=== PATIENT | male | born 1960 | race Caucasian/White ===

== ENCOUNTER → 2019-02-10 | Outpatient (CLI) | payer OTHER ==
--- NOTE | 2019-02-10 10:01 | XR ---
EXAM TYPE: LUMBAR SPINE X RAY SERIES COMPARISON: NONE HISTORY: Pain TECHNIQUE: 4 views are submitted. FINDINGS: Alignment is anatomic. The pedicles are intact. The transverse processes are intact. There is no s pondylolysis or spondylolisthesis. Hypertrophic spurring noted anteriorly. There is degenerative dis c disease at all levels. Vascular calcifications noted. IMPRESSION: 1. Multilevel mild degenerative disc disease.
--- NOTE | 2019-02-10 10:03 | XR ---
EXAMINATION TYPE: XR chest 2V DATE OF EXAM: 02/10/2019 COMPARISON: NONE TECHNIQUE: PA and lateral views submitted. HISTORY: Shortness of breath FINDINGS: The lungs are clear and there is no pneumothorax, pleural effusion, or focal pneumonia. Arthropathy of the AC joints. No overt failure. Curvature the spine with multilevel degenerative changes. Mild h yperinflation. IMPRESSION: 1. No acute process. Mild hyperinflation could be associated with mild COPD.
== END | disposition home or self-care (01) ==
LOC: RADXRMAIN 09:11
PROVIDERS: ATTEND Family Medicine
DX: M51.36 Other intervertebral disc degeneration, lumbar region (principal)
CPT/HCPCS: 71046; 72100

== ENCOUNTER 2019-03-14 12:47 | Emergency (ER) | payer OTHER ==
[2019-03-14] MEDS ORDERED: HYDROmorphone 1 MG/ML 1 ML SYRINGE IVP STA (13:55)
[2019-03-14] MEDS ORDERED: RX INFO: IV CONTRAST WAS GIVEN 1 EACH MISC MISCELLANE PRN (13:56)
--- NOTE | 2019-03-14 15:07 | XR ---
EXAMINATION TYPE: XR knee 4V RT DATE OF EXAM: 03/14/2019 COMPARISON: NONE HISTORY: Knee pain TECHNIQUE: 4 views FINDINGS: There is minimal spurring of the medial femoral and tibial condyles. There is minor spurrin g of the patella. I see no fracture nor dislocation. There is a 1 cm cyst in the head of the fibula. IMPRESSION: Early osteoarthritic changes. No fracture seen.
--- NOTE | 2019-03-14 15:07 | XR ---
EXAMINATION TYPE: XR ankle complete RT DATE OF EXAM: 03/14/2019 COMPARISON: NONE HISTORY: Ankle pain TECHNIQUE: 3 views FINDINGS: Ankle mortise is anatomic. I see no fracture nor dislocation. There is minimal soft tissue swelling over the lateral malleolus. IMPRESSION: Mild soft tissue swelling. No fracture seen.
--- NOTE | 2019-03-14 15:08 | XR ---
EXAMINATION TYPE: XR tibia fibula RT DATE OF EXAM: 03/14/2019 COMPARISON: NONE HISTORY: Pain TECHNIQUE: 2 views FINDINGS: There is rounded sharply marginated lucency in the head of the fibula consistent with a sim ple cyst. I see no fracture nor dislocation. IMPRESSION: 1 cm simple cyst in the fibula head. Otherwise negative exam.
--- NOTE | 2019-03-14 15:09 | XR ---
EXAMINATION TYPE: XR foot complete RT DATE OF EXAM: 03/14/2019 COMPARISON: NONE HISTORY: Pain TECHNIQUE: 3 views FINDINGS: Metatarsals are intact. I see no fracture nor dislocation. There are no erosions. IMPRESSION: Negative right foot exam. No fracture seen. No sign of inflammatory arthritis.
[2019-03-14 15:14] VITALS: RESP 16
[2019-03-14 15:18] LABS: Basophils # (A) 0.1 k/uL (0-0.2); Basophils % (A) 1 %; Eosinophils # (A) 0.2 k/uL (0-0.7); Eosinophils % (A) 1 %; HCT 41.7 % (39.0-53.0); HGB 14.8 gm/dL (13.0-17.5); Lymphocytes % (A) 8 %; MCH 32.2 pg (25.0-35.0); MCHC 35.6 g/dL (31.0-37.0); MCV 90.6 fL (80.0-100.0); Mean Platelet Volume 7.4; Monocytes # (A) 0.8 k/uL (0-1.0); Monocytes % (A) 7 %; Neutrophils # (A) 9.9 k/uL (1.3-7.7); Neutrophils % (A) 82 %; Platelet Count 175 k/uL (150-450); RDW 13.4 % (11.5-15.5); WBC 12.1 k/uL (3.8-10.6)
[2019-03-14 15:19] LABS: ALT 106 U/L (21-72); AST 76 U/L (17-59); African American GFR (CKD) >90 (>60 ml/min/1.73 sqM); Albumin 4.7 g/dL (3.5-5.0); Alkaline Phosphatase 85 U/L (38-126); Anion Gap 11 mmol/L; Blood Urea Nitrogen 12 mg/dL (9-20); Calcium 9.1 mg/dL (8.4-10.2); Carbon Dioxide 22 mmol/L (22-30); Chloride 105 mmol/L (98-107); Glucose 96 mg/dL (74-99); INR 0.9 (<1.2); Potassium 4.6 mmol/L (3.5-5.1); Prothrombin Time 10.1 sec (9.0-12.0); Sodium 138 mmol/L (137-145); Total Bilirubin 0.6 mg/dL (0.2-1.3); Total Protein 7.1 g/dL (6.3-8.2)
[2019-03-14 15:32] LABS: Partial Thromboplastin Time 18.1 sec (22.0-30.0)
--- NOTE | 2019-03-14 15:40 | US ---
EXAMINATION TYPE: US venous doppler duplex LE RT DATE OF EXAM: 03/14/2019 3:32 PM COMPARISON: NONE CLINICAL HISTORY: Pain. SIDE PERFORMED: Right TECHNIQUE: The lower extremity deep venous system is examined utilizing real time linear array sonog marce with graded compression, doppler sonography and color-flow sonography. VESSELS IMAGED: External Iliac Vein (EIV) Common Femoral Vein Deep Femoral Vein Greater Saphenous Vein * Femoral Vein Popliteal Vein Small Saphenous Vein * Proximal Calf Veins (* superficial vessels) Right Leg: Negative for DVT IMPRESSION: No evidence of deep venous thrombosis in the right leg.
--- NOTE | 2019-03-14 16:51 | CT ---
EXAMINATION TYPE: CT lower leg RT w con DATE OF EXAM: 03/14/2019 COMPARISON: None HISTORY: Right ankle/lower leg pain. No injury. CT DLP: 243.2 mGycm Automated exposure control for dose reduction was used. CONTRAST: Performed with IV Contrast, patient injected with 100ml mL of Isovue 300. FINDINGS: There is a small knee joint effusion. Knee joint spaces are fairly normal. Ankle mortise is anatomic. I see no fracture nor dislocation. Tibia and fibula appear intact. There is sharply marginated 1 cm cyst in the head of the fibula. There is no expansion. There is no evidence of soft tissue mass. I se e no focal bony destructive process. IMPRESSION: THERE IS A BENIGN-APPEARING CYST IN THE HEAD OF THE FIBULA. OTHERWISE NEGATIVE EXAM. NO FRACTURE. NO EVIDENCE OF SOFT TISSUE MASS.
[2019-03-14] MEDS ORDERED: SODIUM CHLORIDE 0.9% 500 ML 500 ML IV STA (16:56)
[2019-03-14] MEDS ORDERED: ACET/COD 300 MG/30 MG STARTER PACK 6 TAB BTL PO STA (16:59)
--- NOTE | 2019-03-14 16:59 | ED ---
General Adult HPI - General Chief complaint: Extremity Injury, Lower Stated complaint: Ankle pain Time Seen by Provider: 03/14/19 13:33 Source: patient, RN notes reviewed, old records reviewed Mode of arrival: ambulatory Limitations: no limitations - History of Present Illness Initial comments: 58-year-old male patient no pertinent past history presents ED with chief complaint of right lower extremity pain. Patient ports that he woke up and had pain in his right heel, posterior calf pain this morning. Patient denies any recent falls or trauma. Patient denies any systemic complaints, denies any fevers chills, nausea vomiting diarrhea. Patient denies any recent prolonged travel denies any history of blood clot disorder, use of exogenous estrogen or any VTE history. Patient denies all other complaints at this time. Systemic: Pt denies fatigue, fever/chills, rash. Pt denies weakness, night sweats, weight loss. Neuro: Pt denies headache, visual disturbances, syncope or pre-syncope. HEENT: Pt denies ocular discharge or irritation, otalgia, rhinorrhea, pharyngitis or notable lymphadenopathy. Cardiopulmonary: Pt denies chest pain, SOB, heart palpitations, dyspnea on exertion. Abdominal/GI: Pt denies abdominal pain, n/v/d. : Pt denies dysuria, burning w/ urination, frequency/urgency. Denies new onset urinary or bowel incontinence. MSK: Pt denies myalgia, loss of strength or function in extremities. Neuro: Pt denies new onset weakness, paresthesias. - Related Data Home Medications Medication Instructions Recorded Confirmed Calcium Carbonate [Calcium] 600 mg PO DAILY 03/14/19 03/14/19 Garlic 1 tab PO DAILY 03/14/19 03/14/19 Glucosamine/Chondr Mann A Sod [Osteo 1 tab PO DAILY 03/14/19 03/14/19 Bi-Flex Caplet] Multivitamins, Thera [Multivitamin 1 tab PO DAILY 03/14/19 03/14/19 (formulary)] amLODIPine [Norvasc] 5 mg PO DAILY 03/14/19 03/14/19 Allergies Allergy/AdvReac Type Severity Reaction Status Date / Time No Known Allergies Allergy Verified 03/14/19 16:54 Review of Systems ROS Statement: Those systems with pertinent positive or pertinent negative responses have been documented in the HPI. ROS Other: All systems not noted in ROS Statement are negative. Past Medical History Past Medical History: Hypertension History of Any Multi-Drug Resistant Organisms: None Reported Additional Past Surgical History / Comment(s): lipoma removal Past Psychological History: No Psychological Hx Reported Smoking Status: Former smoker Past Alcohol Use History: Daily Past Drug Use History: None Reported, Marijuana General Exam - General Exam Comments Initial Comments: Constitutional: NAD, AOX3, Pt has pleasant affect. HEENT: NC/AT, trachea midline, neck supple, no lymphadenopathy. Posterior pharynx non erythematous, without exudates. External ears appear normal, without discharge. Mucous membranes moist. Eyes PERRLA, EOM intact. There is no scleral icterus. No pallor noted. Cardiopulmonary: RRR, no murmurs, rubs or gallops, no JVD noted. Lungs CTAB in anterior and posterior mcduffie. No peripheral edema. Abdominal exam: Abdomen soft and non-distended. Abdomen non-tender to palpation in all 4 quadrants. Bowel sounds active in LLQ. No hepatosplenomegaly. No ecchymosisNeuro: CN II-XII grossly intact. No nuchal rigidity. No raccon eyes, no blas sign, no hemotympanum. No cervical spinal tenderness. MSK: Distal pulses intact and equal, capillary refill less than 2 seconds. Right posterior calf, right posterior heel and bottom of foot mildly tender to palpation. No erythema or skin changes. No posterior calf tenderness right sided. Posterior tibialis and radial pulse +2 bilaterally. Sensation intact in upper and lower extremities. Full active ROM in upper and lower extremities, 5/5 stregnth. Neri test negative. Limitations: no limitations Course Vital Signs 03/14/19 03/14/19 13:03 15:10 Temperature 98.2 F Pulse Rate 63 89 Respiratory 18 16 Rate Blood Pressure 157/80 150/89 O2 Sat by Pulse 99 99 Oximetry Medical Decision Making - Medical Decision Making 58-year-old male patient no pertinent past history presents ED with chief complaint of right lower extremity pain. Patient ports that he woke up and had pain in his right heel, posterior calf pain this morning. Patient denies any recent falls or trauma. Patient denies any systemic complaints, denies any fevers chills, nausea vomiting diarrhea. Patient denies any recent prolonged travel denies any history of blood clot disorder, use of exogenous estrogen or any VTE history. Patient denies all other complaints at this time. Patient vital signs stable, afebrile. Physical exam displayed: Distal pulses intact and equal, capillary refill less than 2 seconds. Right posterior calf, right posterior heel and bottom of foot mildly tender to palpation. No erythema or skin changes. Laboratory investigations revealed mild cytosis of 12.1. Correl ation studies nonpassive. CMP displayed mildly elevated liver function tests. Lactate acid 1.8. Plain film of the knee, tibia/fibula, ankle, foot displayed mild soft tissue swelling of ankle, simple 1 new cyst that fibular head. Venous Doppler was negative for DVT. CT of right lower extremity with contrast displayed a benign-appearing cyst in the head of the fibula, otherwise negative exam no evidence of soft tissue mass. Patient offered splint, declined, patient will be discharged has crutches in car, patient will not bear weight on right lower extremity. Patient follow up with primary care provider and orthopedic consult on Saturday. Return to ER if condition worsens in any way. Return precautions discussed, case discussed in depth and pt seen by Dr. Crane. - Lab Data Result diagrams: 03/14/19 14:41 03/14/19 14:41 Lab Results 03/14/19 03/14/19 03/14/19 Range/Units 14:41 14:41 14:41 WBC 12.1 H (3.8-10.6) k/uL RBC 4.60 (4.30-5.90) m/uL Hgb 14.8 (13.0-17.5) gm/dL Hct 41.7 (39.0-53.0) % MCV 90.6 (80.0-100.0) fL MCH 32.2 (25.0-35.0) pg MCHC 35.6 (31.0-37.0) g/dL RDW 13.4 (11.5-15.5) % Plt Count 175 (150-450) k/uL Neutrophils % 82 % Lymphocytes % 8 % Monocytes % 7 % Eosinophils % 1 % Basophils % 1 % Neutrophils # 9.9 H (1.3-7.7) k/uL Lymphocytes # 1.0 (1.0-4.8) k/uL Monocytes # 0.8 (0-1.0) k/uL Eosinophils # 0.2 (0-0.7) k/uL Basophils # 0.1 (0-0.2) k/uL PT 10.1 (9.0-12.0) sec INR 0.9 (<1.2) APTT 18.1 L (22.0-30.0) sec Sodium 138 (137-145) mmol/L Potassium 4.6 (3.5-5.1) mmol/L Chloride 105 (98-107) mmol/L Carbon Dioxide 22 (22-30) mmol/L Anion Gap 11 mmol/L BUN 12 (9-20) mg/dL Creatinine 0.68 (0.66-1.25) mg/dL Est GFR (CKD-EPI)AfAm >90 (>60 ml/min/1.73 sqM) Est GFR (CKD-EPI)NonAf >90 (>60 ml/min/1.73 sqM) Glucose 96 (74-99) mg/dL Plasma Lactic Acid Smith (0.7-2.0) mmol/L Calcium 9.1 (8.4-10.2) mg/dL Total Bilirubin 0.6 (0.2-1.3) mg/dL AST 76 H (17-59) U/L ALT 106 H (21-72) U/L Alkaline Phosphatase 85 (38-126) U/L Total Protein 7.1 (6.3-8.2) g/dL Albumin 4.7 (3.5-5.0) g/dL 03/14/19 Range/Units 14:41 WBC (3.8-10.6) k/uL RBC (4.30-5.90) m/uL Hgb (13.0-17.5) gm/dL Hct (39.0-53.0) % MCV (80.0-100.0) fL MCH (25.0-35.0) pg MCHC (31.0-37.0) g/dL RDW (11.5-15.5) % Plt Count (150-450) k/uL Neutrophils % % Lymphocytes % % Monocytes % % Eosinophils % % Basophils % % Neutrophils # (1.3-7.7) k/uL Lymphocytes # (1.0-4.8) k/uL Monocytes # (0-1.0) k/uL Eosinophils # (0-0.7) k/uL Basophils # (0-0.2) k/uL PT (9.0-12.0) sec INR (<1.2) APTT (22.0-30.0) sec Sodium (137-145) mmol/L Potassium (3.5-5.1) mmol/L Chloride (98-107) mmol/L Carbon Dioxide (22-30) mmol/L Anion Gap mmol/L BUN (9-20) mg/dL Creatinine (0.66-1.25) mg/dL Est GFR (CKD-EPI)AfAm (>60 ml/min/1.73 sqM) Est GFR (CKD-EPI)NonAf (>60 ml/min/1.73 sqM) Glucose (74-99) mg/dL Plasma Lactic Acid Smith 1.8 (0.7-2.0) mmol/L Calcium (8.4-10.2) mg/dL Total Bilirubin (0.2-1.3) mg/dL AST (17-59) U/L ALT (21-72) U/L Alkaline Phosphatase (38-126) U/L Total Protein (6.3-8.2) g/dL Albumin (3.5-5.0) g/dL Disposition Clinical Impression: Myalgia Disposition: HOME SELF-CARE Condition: Stable Instructions (If sedation given, give patient instructions): Musculoskeletal Pain (ED) Additional Instructions: Patient to adhere to previously discussed treatment plan and will take medication(s) as directed. Patient to follow up with PCP in 1-2 days. Patient to return to ED if symptoms do not improve. Use crutches do not bear weight on right lower extremity. Follow up with primary care provider and orthopedic consult on Saturday. Return to ER if condition worsens in any way. Is patient prescribed a controlled substance at d/c from ED?: No Referrals: Gilbert Rodarte MD [Primary Care Provider] - 1-2 days Elver Lares MD [STAFF PHYSICIAN] - 1-2 days
[2019-03-14 18:03] VITALS: BP 147/78; PULSE 87; TEMP 98.1
== END 2019-03-14 18:02 | disposition home or self-care (01) ==
LOC: EC 12:47
DX: M79.10 Myalgia, unspecified site (principal); M79.661 Pain in right lower leg; R94.5 Abnormal results of liver function studies; L72.9 Follicular cyst of the skin and subcutaneous tissue, unspecified; Z91.19 Patient's noncompliance with other medical treatment and regimen; I10 Essential (primary) hypertension; Z79.899 Other long term (current) drug therapy; Z87.891 Personal history of nicotine dependence
CPT/HCPCS: 99284; 96374; 36415; 80053; 83605; 85025; 85610; 85730; 73590; 73564; 73610; 73630; 93971; 73701; J1170; Q9967

== ENCOUNTER → 2020-08-05 | Outpatient (CLI) | payer OTHER ==
--- NOTE | 2020-08-05 14:13 | XR ---
Bilateral hands HISTORY: Pain 2 views each hand submitted soft tissue swelling is noted at the level of the metacarpophalangeal joints. Thickening of the francesco x of the fifth metacarpal on the right likely is due to remote injury. There is arthropathy present w ithin the interphalangeal joints, metacarpophalangeal joint of the first second and third digits bila terally. No acute fracture or dislocation. IMPRESSION: Osteoarthritis suspected, correlate for possible crystal deposition arthropathy, hemachro matosis.
== END | disposition home or self-care (01) ==
LOC: RADXRMAIN 10:05
PROVIDERS: ATTEND Nurse Practitioner Family
DX: E83.110 Hereditary hemochromatosis (principal)

== ENCOUNTER → 2021-04-11 | Outpatient (CLI) | payer OTHER | END | disposition home or self-care (01) | LOC: LABWHC1 14:20 | PROVIDERS: ATTEND Nurse Practitioner | DX: Z20.822 Contact with and (suspected) exposure to COVID-19 (principal) | CPT/HCPCS: U0003; C9803; U0005 ==

== ENCOUNTER → 2021-09-04 | Outpatient (CLI) | payer OTHER | END | disposition home or self-care (01) | LOC: LABWHC1 10:36 | PROVIDERS: ATTEND Orthopaedic Surgery | DX: Z01.812 Encounter for preprocedural laboratory examination (principal); Z20.822 Contact with and (suspected) exposure to COVID-19; G56.02 Carpal tunnel syndrome, left upper limb; M19.042 Primary osteoarthritis, left hand | CPT/HCPCS: U0003; C9803 ==

== ENCOUNTER → 2023-10-11 | Outpatient (CLI) | payer OTHER ==
[2023-10-11 10:32] LABS: Partial Thromboplastin Time 23.8 sec (22.0-30.0)
[2023-10-11 16:05] LABS: ALT 63 U/L (10-49); AST 42 U/L (14-35); Albumin 4.7 g/dL (3.8-4.9); Albumin/Globulin Ratio 2.35 Ratio (1.60-3.17); Alkaline Phosphatase 88 U/L (41-126); BUN/Creat Ratio 14.75 Ratio (12.00-20.00); Basophils % (A) 1.3 %; Blood Urea Nitrogen 11.8 mg/dL (9.0-27.0); Calcium 9.4 mg/dL (8.7-10.3); Carbon Dioxide 26.9 mmol/L (21.6-31.8); Chloride 96 mmol/L (96-109); Eosinophils # (A) 0.25 X 10*3/uL (0.04-0.35); Eosinophils % (A) 3.4 %; Glucose 101 mg/dL (70-110); HCT 42.6 % (39.6-50.0); HGB 15.5 g/dL (13.0-17.0); Lymphocytes % (A) 29.5 %; MCHC 36.4 g/dL (32.0-37.0); MCV 90.8 FL (80.0-97.0); Mean Platelet Volume 9.8 FL (9.5-12.2); Monocytes # (A) 0.86 X 10*3/uL (0.20-1.00); Monocytes % (A) 11.5 %; NRBC Per 100 WBC 0 X 10*3/uL (0.00-0.01); Neutrophils # (A) 4.04 X 10*3/uL (1.80-7.70); Neutrophils % (A) 54.2 %; Platelet Count 203 X 10*3/uL (140-440); Potassium 4.1 mmol/L (3.5-5.5); RBC 4.69 X 10*6/uL (4.40-5.60); RDW 11.1 % (11.5-14.5); Sodium 134 mmol/L (135-145); Total Bilirubin 0.5 mg/dL (0.3-1.2); Total Protein 6.7 g/dL (6.2-8.2); WBC 7.46 X 10*3/uL (4.50-10.00)
== END | disposition home or self-care (01) ==
LOC: LABWHC1 09:20
PROVIDERS: ATTEND Orthopaedic Surgery
DX: Z01.812 Encounter for preprocedural laboratory examination (principal)
CPT/HCPCS: 36415; 80053; 83036; 85025; 85610; 85730; 87070

== ENCOUNTER → 2023-10-17 | Outpatient (CLI) | payer OTHER ==
[2023-10-17 16:03] LABS: Basophils # (A) 0.09 X 10*3/uL (0.00-0.10); Basophils % (A) 1.1 %; Eosinophils # (A) 0.23 X 10*3/uL (0.04-0.35); Eosinophils % (A) 2.7 %; HCT 45.5 % (39.6-50.0); HGB 16.6 g/dL (13.0-17.0); Lymphocytes # (A) 2.16 X 10*3/uL (0.90-5.00); Lymphocytes % (A) 25.2 %; MCH 33.1 pg (27.0-32.0); MCHC 36.5 g/dL (32.0-37.0); MCV 90.6 FL (80.0-97.0); Mean Platelet Volume 9.3 FL (9.5-12.2); Monocytes # (A) 0.78 X 10*3/uL (0.20-1.00); Monocytes % (A) 9.1 %; NRBC Per 100 WBC 0 X 10*3/uL (0.00-0.01); Neutrophils # (A) 5.27 X 10*3/uL (1.80-7.70); Neutrophils % (A) 61.5 %; Platelet Count 219 X 10*3/uL (140-440); RBC 5.02 X 10*6/uL (4.40-5.60); RDW 11.3 % (11.5-14.5); WBC 8.56 X 10*3/uL (4.50-10.00)
[2023-10-17 16:12] LABS: ALT 50 U/L (10-49); AST 36 U/L (14-35); Albumin 4.9 g/dL (3.8-4.9); Albumin/Globulin Ratio 2.13 Ratio (1.60-3.17); Alkaline Phosphatase 86 U/L (41-126); BUN/Creat Ratio 14.25 Ratio (12.00-20.00); Blood Urea Nitrogen 11.4 mg/dL (9.0-27.0); Calcium 9.9 mg/dL (8.7-10.3); Chloride 99 mmol/L (96-109); Chol/HDL Ratio 3.52 Ratio; Globulin 2.3 g/dL (1.6-3.3); Glucose 92 mg/dL (70-110); LDL Cholesterol,Calculated 124.7 mg/dL (0.0-131.0); Potassium 4.3 mmol/L (3.5-5.5); Prostate Specific Antigen 0.58 ng/mL (0.000-4.500); Sodium 138 mmol/L (135-145); Total Bilirubin 0.7 mg/dL (0.3-1.2); Total Protein 7.2 g/dL (6.2-8.2); Uric Acid 7.2 mg/dL (3.7-8.7)
== END | disposition home or self-care (01) ==
LOC: LABWHC1 11:39
PROVIDERS: ATTEND Family Medicine
DX: Z12.5 Encounter for screening for malignant neoplasm of prostate (principal); M10.9 Gout, unspecified; E78.5 Hyperlipidemia, unspecified
CPT/HCPCS: 36415; 80053; 80061; 83036; 84153; 84443; 84550; 85025

== ENCOUNTER → 2023-10-17 | Outpatient (CLI) | payer OTHER ==
[~2023-10-17] MED LIST: REGADENOSON 0.4 MG/5 ML SYRINGE IV PRN
--- NOTE | 2023-10-17 11:22 | CA ---
Lexiscan Nuclear Stress Test Report Name: Nino Tan Exam Date: 10/17/2023 10:34 Exam Location: [place] Stress Ht (in): 70 Wt (lb): 186 BSA: 2.02 Ordering Phys: Gilbert Rodarte MD Referring Phys: GILBERT RODARTE Technologist: Tom Malin Age: 63 Gender: M : 1960 Procedure CPT: Indications: I25.2 Old NV ICD-10 Codes: Patient History: CHEST PAIN, NUMBNESS IN FACE/NECK, HTN, FAMILY HX OF HEART DISEASE, PRIOR SMOKER, PRIOR NV, COPD Medications: AMLODIPINE,,,, HZTZ,,,, MULTIVITAMIN,,,, OSTEOFLEX,,,, FISH OIL,,, Meds past 24 hrs: Pretest Chest Pain: STRESS TEST Lexiscan Protocol Exercise Duration (min:sec): 01:[address] Depressions (mm): Angina Score: Castro Score: Resting HR (bpm): 59 Peak HR (bpm): 82 Resting BP (mmHg): 151 / 71 Peak BP (mmHg): 171 / 72 MPHR: 158 Target HR: 134 % MPHR: 52 METS: 1.0 Total Dose: Peak Dose: Atropine: Double Product: 21407 BP Response: Stress Termination: INFUSION COMPLETE Stress Symptoms: NO SYMPTOMS Stress Summary: ECG ANALYSIS Resting ECG: Normal sinus rhythm, normal axis, [address] elevation in lead V2 Stress ECG: No changes in stress ECG when compared to rest. No significant ST-T wave changes diagnostic for ischemia by ST segment analysis. CONCLUSIONS Overall nonischemic ECG response to Lexiscan infusion Normal hemodynamic and clinical response to Lexiscan infusion Normal ECG portion of the stress test Please refer to the nuclear imaging portion of the stress test for a complete interpretation of this study Dr Sandoval Warren (Electronically Signed) Final Date: 17 October 2023 11:22
--- NOTE | 2023-10-17 12:11 | NM ---
EXAMINATION TYPE: NM stress lexiscan cardiolite DATE OF EXAM: 10/17/2023 COMPARISON: NONE CLINICAL INDICATION: Male, 63 years old with history of I25.2 old HI; TECHNIQUE: After the intravenous administration of 9.8 mCi Tc 99m Sestamibi - Cardiolite resting SPE CT images acquired 60 minutes post injection. The patient received 0.4mg Lexiscan, 25.5 mCi Tc 99m Sestamibi - Stress images obtained [address] injection FINDINGS: Review of stress and rest SPECT images demonstrates no distinct perfusion abnormality. Gated analysi s shows normal wall motion with an estimated left ventricular ejection fraction of 61 %. IMPRESSION: No scintigraphic evidence for reversible ischemia.
== END | disposition home or self-care (01) ==
LOC: RADNMMAIN 09:01
PROVIDERS: ATTEND Family Medicine
DX: I25.2 Old myocardial infarction (principal); J44.9 Chronic obstructive pulmonary disease, unspecified; I10 Essential (primary) hypertension; R07.9 Chest pain, unspecified; Z87.891 Personal history of nicotine dependence
CPT/HCPCS: 93017; 78452; A9500; J2785

== ENCOUNTER → 2023-10-21 | Outpatient (CLI) | payer OTHER ==
--- NOTE | 2023-10-22 08:17 | CA ---
Transthoracic Echo Report Name: Nino Tan Age: 63 Gender: M : 1960 Exam Date: 10/21/2023 18:03 Exam Location: [place] Echo Ht (in): 62 Wt (lb): 186 Ordering Physician: Gilbert Rodarte MD Attending/Referring Phys: [id number], Cayden Brass Pickler Izzy Vasquez RDCS Procedure CPT: Indications: I25.2OLD MYOCARDIAL INFARCTION,R42 DIZZINESS AND G Cardiac Hx: Technical Quality: Contrast 1: Total Dose (mL): Contrast 2: Total Dose (mL): MEASUREMENTS (Male / Female) Normal Values 2D ECHO LV Diastolic Diameter PLAX 4.5 cm 4.2 - 5.9 / 3.9 - 5.3 cm LV Systolic Diameter PLAX 3.2 cm IVS Diastolic Thickness 1.0 cm 0.6 - 1.0 / 0.6 - 0.9 cm LVPW Diastolic Thickness 1.1 cm 0.6 - 1.0 / 0.6 - 0.9 cm LV Relative Wall Thickness 0.5 LVOT Diameter 2.1 cm Aortic Root Diameter 2.8 cm LA Systolic Diameter LX 4.3 cm 3.0 - 4.0 / 2.7 - 3.8 cm LV Diastolic Volume MOD BP 93.6 cm??? 67 - 155 / 56 - 104 cm??? LV Systolic Volume MOD BP 28.1 cm??? 22 - 58 / 19 - 49 cm??? LV Ejection Fraction MOD BP 69.9 % >= 55 % LV Cardiac Index MOD BP 3006.6 cm???/min???m??? LV Diastolic Volume MOD 4C 98.0 cm??? LV Systolic Volume MOD 4C 35.8 cm??? LV Ejection Fraction MOD 4C 63.5 % LV Cardiac Index MOD 4C 2858.8 cm???/min???m??? LV Diastolic Length 4C 7.4 cm LV Systolic Length 4C 6.0 cm LV Diastolic Volume MOD 2C 89.2 cm??? LV Systolic Volume MOD 2C 22.3 cm??? LV Ejection Fraction MOD 2C 75.0 % LV Cardiac Index MOD 2C 3076.6 cm???/min???m??? LV Diastolic Length 2C 7.3 cm LV Systolic Length 2C 6.1 cm DOPPLER AV Peak Velocity 176.3 cm/s AV Peak Gradient 12.4 mmHg AV Mean Velocity 109.7 cm/s AV Mean Gradient 5.6 mmHg AV Velocity Time Integral 35.9 cm LVOT Peak Velocity 153.5 cm/s LVOT Peak Gradient 9.4 mmHg LVOT Velocity Time Integral 31.7 cm LVOT Stroke Volume 104.6 cm??? LVOT Stroke Volume Index 56.4 ml/m??? LVOT Cardiac Index 4807.6 cm???/min???m??? AV Area Cont Eq vti 2.9 cm??? AV Area Cont Eq pk 2.9 cm??? Mitral E Point Velocity 112.8 cm/s Mitral A Point Velocity 94.1 cm/s Mitral E to A Ratio 1.2 MV Deceleration Time 183.9 ms MV E' Velocity 11.9 cm/s Mitral E to MV E' Ratio 9.5 TR Peak Velocity 279.2 cm/s TR Peak Gradient 31.2 mmHg PV Peak Velocity 78.1 cm/s PV Peak Gradient 2.4 mmHg FINDINGS Left Ventricle Left ventricular ejection fraction is estimated at 50-55 %. Normal Left ventricular size, wall thickness, systolic function with no obvious regional wall motion abnormalities. Normal Left ventricular diastolic filling pattern. Right Ventricle Normal right ventricular size and function. Right Atrium Normal right atrial size. Left Atrium Mildly increased left atrial diameter. Mitral Valve No mitral regurgitation. Aortic Valve Trileaflet aortic valve. Tricuspid Valve Mild tricuspid regurgitation. Pulmonic Valve Trace to mild pulmonic regurgitation. Pericardium No pericardial effusion. Aorta Normal size aortic root. CONCLUSIONS Normal LV function Previewed by: Dr. Ismael Lazaro MD (Electronically Signed) Final Date: 22 October 2023 08:16
== END | disposition home or self-care (01) ==
LOC: RADECHMAIN 17:54
PROVIDERS: ATTEND Family Medicine
DX: I25.2 Old myocardial infarction (principal); R42 Dizziness and giddiness
CPT/HCPCS: 93306

== ENCOUNTER → 2023-10-21 | Outpatient (CLI) | payer OTHER ==
--- NOTE | 2023-10-21 12:49 | CT ---
EXAMINATION TYPE: CT left knee - THANG Protocol DATE OF EXAM: 10/21/2023 COMPARISON: No radiographic correlation available HISTORY: 63-year-old male M25.562, left knee pain, left thang knee TECHNIQUE: CT of the left knee for surgical planning purposes. Additional scanning through the pelvis and both ankles for protocol. Coronal and sagittal reconstructions performed. CT DLP: 553 mGycm Automated exposure control for dose reduction was used. FINDINGS: There appears to be mild early degenerative change of the hips. Mild/moderate circumferential bladder wall thickening may reflect carotid bladder wall hypertrophy. Correlate to exclude cystitis. There is tricompartmental degenerative change, greatest within the medial compartment with marginal s purring, subchondral sclerosis and cystic change. Moderate knee joint effusion is noted. Extensor mec hanism appears intact. Trace Spangler's cyst present. Some [id number] focal osteoarthritic change at the lateral aspect of the right tibiotalar joint at the ankle. IMPRESSION: IMAGING FOR SURGICAL PLANNING PURPOSES. TRICOMPARTMENTAL LEFT KNEE OA, GREATEST IN THE MEDIAL COMPART MENT.
== END | disposition home or self-care (01) ==
LOC: RADCTMAIN 11:00
PROVIDERS: ATTEND Orthopaedic Surgery
DX: Z01.818 Encounter for other preprocedural examination (principal); M17.12 Unilateral primary osteoarthritis, left knee

== ENCOUNTER → 2023-10-25 | Outpatient (CLI) | payer OTHER ==
--- NOTE | 2023-10-25 17:06 | US ---
EXAMINATION TYPE: US carotid duplex BILAT DATE OF EXAM: 10/25/2023 COMPARISON: NONE CLINICAL INDICATION: Male, 63 years old with history of R42 DIZZINESS AND GIDDINESS; Dizzy spells, re cent [place], Hx HTN TECHNIQUE: Carotid duplex ultrasound examination. Indirect Doppler criteria was utilized. FINDINGS: EXAM MEASUREMENTS: RIGHT: Peak Systolic Velocity (PSV) cm/sec ----- Right CCA: 92 ----- Right ICA: 100 ----- Right ECA: 89 ICA/CCA ratio: 1.1 RIGHT: End Diastole cm/sec ----- Right CCA: 20 ----- Right ICA: 27 ----- Right ECA: 13 LEFT: Peak Systolic Velocity (PSV) cm/sec ----- Left CCA: 79 ----- Left ICA: 176 ----- Left ECA: 84 ICA/CCA ratio: 2.2 LEFT: End Diastole cm/sec ----- Left CCA: 15 ----- Left ICA: 56 ----- Left ECA: 10 VERTEBRALS (direction of flow): Right Vertebral: Antegrade Left Vertebral: Antegrade Rhythm: Calcifications and intimal thickening seen bilaterally, and increased left ICA velocities IMPRESSION: 50-69% stenosis of the left carotid bifurcation. Less than 50% stenosis of the right carotid bifurcation. Criteria for Assigning % of Stenosis / Diameter reduction (Estimation based on the indirect measurements of the internal carotid artery velocities (ICA PSV). 1. Normal (no stenosis)=ICA PSV < 125 cm/s: ratio < 2.0: ICA EDV<40 cm/s. 2. Less than 50% stenosis=ICA PSV < 125 cm/s: ratio < 2.0: ICA EDV<40 cm/s. 3. 50 to 69% stenosis=ICA PSV of 125 to 230 cm/s: ration 2.0 ? 4.0: ICA EDV 40-100 cm/s. 4. Greater than 70% stenosis to near occlusion= ICA PSV > 230 cm/s: ratio > 4.0: ICA EDV > 100 cm/s. 5. Near occlusion= ICA PSV velocities may be low or undetectable: variable ratio and ICA EDV. 6. Total occlusion=unable to detect flow.
== END | disposition home or self-care (01) ==
LOC: RADUSWWP 15:43
PROVIDERS: ATTEND Family Medicine
DX: I65.22 Occlusion and stenosis of left carotid artery (principal); I65.21 Occlusion and stenosis of right carotid artery; I25.2 Old myocardial infarction
CPT/HCPCS: 93880

== ENCOUNTER 2023-11-07 05:38 | Day surgery (SDC) | payer OTHER, MEDICARE ==
[2023-11-01 10:39] VITALS: BMI 26.6
[~2023-11-07 05:38] MED LIST changes: +LIDOCAINE 1% (10MG/ML) FOR IV START INTRADERMA PRN; -REGADENOSON 0.4 MG/5 ML SYRINGE IV PRN
[2023-11-07] MEDS ORDERED: ONDANSETRON 4 MG/2 ML VIAL IVP PRN (06:00)
[2023-11-07] MEDS ORDERED: DEXAMETHASONE SOD PHOSPHATE 10 MG/ML 1 ML VIAL IV PRN (06:00)
[2023-11-07] MEDS ORDERED: FAMOTIDINE 20 MG/2 ML VIAL IVP PRN (06:00)
[2023-11-07] MEDS ORDERED: TRANEXAMIC 1,000 MG/100ML-NACL 1,000 MG in SALINE 1 100ML.BAG IV PRN (06:00)
[2023-11-07] MEDS ORDERED: TRANEXAMIC 1,000 MG/100ML-NACL 1,000 MG in SALINE 1 100ML.BAG IVPB PRN (06:00)
[2023-11-07] MEDS: DEXAMETHASONE SOD PHOSPHATE 4 MG/ML 1 ML VIAL IV ONE (06:41)
[2023-11-07] MEDS: ACETAMINOPHEN TAB 500 MG TAB PO PRN (06:41)
[2023-11-07] MEDS: KETOROLAC 15 MG/ML 1 ML VIAL IVP PRN (06:41)
[2023-11-07] MEDS: LACTATED RINGERS 1,000 ML IV SCH (06:41)
[2023-11-07] MEDS: oxyCODONE ER 10 MG TAB.ER.12H PO PRN (06:42)
[2023-11-07] MEDS: DOCUSATE 100 MG CAP PO PRN (06:42)
[2023-11-07] MEDS: ONDANSETRON 4 MG/2 ML VIAL IVP ONE (06:43)
[2023-11-07] MEDS: fentaNYL (PF) 50 MCG/1 ML VIAL IVP ONE (06:48)
[2023-11-07] MEDS: MIDAZOLAM 2 MG/2 ML VIAL IVP ONE (06:48)
[2023-11-07] MEDS ORDERED: MIDAZOLAM 2 MG/2 ML VIAL IV PRN (07:00)
[2023-11-07] MEDS ORDERED: HYDROmorphone 0.5 MG/0.5 ML SYRINGE IVP PRN (07:00)
[2023-11-07 07:05] VITALS: RESP 16
[2023-11-07] MEDS ORDERED: KETAMINE HCL IN 0.9 % NACL 50 MG/5 ML SYRINGE ONE (07:09)
[2023-11-07] MEDS ORDERED: TRANEXAMIC 1,000 MG/100ML-NACL PREMIX BAG ONE (07:09)
[2023-11-07] MEDS ORDERED: LIDOCAINE 1% INJ 10MG/ML (20 ML MDV) ONE (07:09)
[2023-11-07] MEDS ORDERED: SODIUM CHLORIDE 0.9% (PF) 10 ML VIAL ONE (07:09)
[2023-11-07] MEDS ORDERED: fentaNYL (PF) 50 MCG/ML 2 ML AMP ONE (07:09)
[2023-11-07] MEDS ORDERED: PROPOFOL 10 MG/ML 20 ML VIAL IV ONE (07:09)
[2023-11-07] MEDS ORDERED: ROPIVACAINE 5 MG/ML 30 ML VIAL ONE (07:09)
[2023-11-07] MEDS ORDERED: MIDAZOLAM 2 MG/2 ML VIAL ONE (07:09)
[2023-11-07] MEDS ORDERED: SUCCINYLCHOLINE CHLORIDE 200 MG/10 ML VIAL IV ONE (07:09)
[2023-11-07] MEDS ORDERED: HYDROmorphone (PF) 1 MG/ML ONE (07:09)
[2023-11-07] MEDS ORDERED: ePHEDrine 50 MG/ML 1 ML VIAL ONE (07:09)
[2023-11-07] MEDS: ROPIVACAINE/EPI/CLONIDINE/KET 50 ML SYRINGE MISCELLANE PRN (07:46)
--- NOTE | 2023-11-07 08:55 | P.ANPRN ---
Procedure Note - Anesthesia - Nerve Block Performed Left Adductor Canal Single Time Out Performed: Yes ([id number]) Date of Procedure: 11/07/23 Procedure Start Time: 06:48 Procedure Stop Time: 06:52 Location of Patient: PreOp Indication: Acute Post-Operative Pain, Requested by Surgeon Specifically requested for management of pain by DrLes: Jackson Iqbal Sedation Type: Sedate with meaningful contact maintained Preparation: Sterile Prep Position: Supine Catheter: None Needle Types: Pajunk Needle Gauge: 21 Ultrasound used to visualize needle placement: Yes Ultrasound used to observe medication spread: Yes Injectate: 0.5% Ropivacaine (see comment for volume) (15cc +10cc nacl pf) Blood Aspirated: No Pain Paresthesia on Injection Noted: No Resistance on Injection: Normal Image Stored and Saved: Yes Events: Uneventful and Well Tolerated
--- NOTE | 2023-11-07 08:56 | P.ANPRN ---
Procedure Note - Anesthesia - Nerve Block Performed Left iPack Single Time Out Performed: Yes ([id number]) Date of Procedure: 11/07/23 Procedure Start Time: 06:53 Procedure Stop Time: 06:55 Location of Patient: PreOp Indication: Acute Post-Operative Pain, Requested by Surgeon Specifically requested for management of pain by DrLse: Jackson Iqbal Sedation Type: Sedate with meaningful contact maintained Preparation: Sterile Prep Position: Supine Catheter: None Needle Types: Pajunk Needle Gauge: 21 Ultrasound used to visualize needle placement: Yes Ultrasound used to observe medication spread: Yes Injectate: 0.5% Ropivacaine (see comment for volume) (15cc +10cc nacl pf) Blood Aspirated: No Pain Paresthesia on Injection Noted: No Resistance on Injection: Normal Image Stored and Saved: Yes Events: Uneventful and Well Tolerated
[2023-11-07] MEDS: LACTATED RINGERS 1,000 ML IV ONE (09:00)
--- NOTE | 2023-11-07 09:00 | P.OP ---
Date of Procedure: 11/07/23 Preoperative Diagnosis: Left knee medial compartment osteoarthritis Postoperative Diagnosis: Same Procedure(s) Performed: 1. Left Unicompartmental knee arthroplasty 2. Computer assisted musculoskeletal navigation using CT/MRI images Implants: Restoris MCK Size #5 Femur Restoris MCK size #6 Tibia Jake X3 Uni Onlay Tibial Insert Size#6, 8-mm Anesthesia: GETA, regional Surgeon: Jackson Ibqal Swatch Cutter #1: Marycarmen Corrales Estimated Blood Loss (ml): 100 IV fluids (ml): 1,200 Pathology: none sent Condition: stable Disposition: PACU Indications for Procedure: I met with the patient preoperatively in the office setting and discussed treatment of their symptomatic knee arthritis. The patient has isolated pain over the medial compartment and has imaging confirming isolated medial compartment arthritis. We discussed the pros and cons of a partial versus total knee replacement. Based on the patient's imaging and clinical exam I think that there are good candidate for a partial medial knee replacement. We discussed the benefits of this compared to conventional total knee replacement including faster recovery and a more normal feeling knee. We discussed the limitations in a partial knee replacement particularly progression of arthritis in the patellofemoral and lateral compartment. The patient understood this and agreed to proceed with a partial knee replacement. I discussed the potential risks and complications at length and gave them ample time to ask questions. Risks discussed included: risks from anesthesia, superficial site surgical infection, acute and/or chronic periprosthetic joint infection, delayed wound healing, drainage, wound necrosis, instability, stiffness, stiffness requiring manipulation and/or revision surgery, progression of arthritis in the patellofemoral and lateral compartment, damage to local blood vessels or nerves, aseptic loosening of the implants, extensor mechanism issues including disruption, patellar maltracking, avascular necrosis etc., continued or worsened knee pain, generalized dissatisfaction with surgical outcome, need for revision surgery, an inability to regain preinjury level of function, DVT, PE, other medical complications, and possibly loss of life or limb. The patient voiced their understanding that while these are the most common complications other less common complications are possible. They provided both their verbal and written consent to go forward with surgery. Operative Findings: Complete full-thickness cartilage loss of the medial compartment. Mild partial- thickness cartilage loss on the medial femoral trochlea. Intact full-thickness cartilage undersurface of the patella and the lateral compartment of the knee. ACL was visualized to be intact. Description of Procedure: The patient was identified in preoperative holding and the correct operative extremity was verified and marked with a marker. I reviewed the consent form with the patient at length. All of their questions were answered. The patient was given a block by anesthesia. They were then brought back to the operating room. They were transferred onto the operating room table where a general anesthetic, preoperative antibiotics, and tranexamic acid were administered by anesthesia. A tourniquet was applied to the proximal aspect of the operative extremity. The contralateral extremity was padded under the heel and secured to the operating room table with a nonsterile blue towel and tape. The ipsilateral arm was carefully draped across the patient's chest and secured with a pillow and foam. A post was applied over the lateral aspect of the ipsilateral thigh and a bolster was placed under the ipsilateral foot. I verified that the operative extremity was stable and the knee was flexed to 90. The operative extremity was then placed in a leg liao, nonsterile drapes were applied, and the extremity was prepped and draped sterilely in the standard sterile fashion. Prior to starting surgery timeout was performed identifying the correct patient, operative extremity, and procedure. The leg was then elevated, exsanguinated with an Esmarch bandage, and the tourniquet was inflated. An anterior midline incision was made sharply with a scalpel. Once I had dissected deep to the superficial fascial layer medial and lateral flaps were elevated. A medial parapatellar arthrotomy was created taking care to not inadvertently damaged cartilage in the femoral trochlea since a partial medial compartmental arthroplasty was anticipated. Upon opening the knee joint there was severe arthritic changes in the medial compartment, but the patellofemoral and lateral compartment were free from arthritic changes. Having confirmed isolated medial compartment arthritis I proceeded to perform a partial medial compartment arthroplasty. The anterior horn of the medial meniscus was sharply released and a limited medial release was performed around the posterior medial corner of the knee to facilitate retractor placement. A small portion of the fat pad was excised with electrocautery just to allow visualization. The ACL and PCL were probed and found to be intact. 4 mm pins were then placed within the incision in the medial distal femur and proximal tibia. Arrays were applied to the pins and I verified they were completely tightened. The knee was then registered with the Jake robot and manipulations in implant position were made to balance the knee and opitmize implant position. Using the Jake robotic saw and nila all cuts were made in accordance with our plan. All bony fragments were removed. Local anesthetic was then infiltrated around the joint capsule. Trial implants were then placed within the knee. Range of motion and collateral ligament tension was then evaluated. Once the knee was felt to be appropriately balanced the Jake pins were removed. With the trial components in place, the patella tracked midline. All trial components were then removed from the knee. The knee was thoroughly irrigated with pulsatile lavage. Cement was prepared via vacuum mixing in a bowl on the back table. I then hand pressurized cement into the femur and tibia and placed the implants beginning with the tibial base tray, femoral component, and finally the poly liner. All extruded cement was removed including from the pin sites. Once the cement had hardened the knee was evaluated one final time with the final polyethylene liner in place. The knee had full extension and flexion and felt stable to varus and valgus stress throughout the arc of motion. The tourniquet was released and with the tourniquet down the patella tracked midline. All bleeders were controlled with electrocautery. The knee was thoroughly irrigated using 3 L of sterile saline and pulsatile lavage. The extensor mechanism was then reapproximated using pop off Vicryl sutures followed by a running barbed suture. The knee was then closed in layers with a 0 strata fix for the deep fascial layer, 2-0 strata fix for the superficial subcutaneous layer and Monocryl and Steri-Strips for the skin. A sterile dressing was applied. I verified that all instrument, sponge, and sharp counts were correct. The patient was then transferred off the operating room table, extubated, and brought to recovery having tolerated the procedure well. Marycarmen Corrales PA-C was required as a skilled dietary assistant for patient positioning, draping, exposure, retraction, placement of implants and closure of wound. PLAN: The patient can weight-bear as tolerated on the operative extremity. DVT prophylaxis with aspirin 81 mg twice a day based on preoperative risk stratification. The patient is going to attempt to leave as an outpatient. They can be discharged as long as they passed physical therapy and her pain is controlled. Follow-up in the office in 2 weeks for wound check and x-rays of the knee including an AP and lateral.
[2023-11-07 09:26] VITALS: TEMP 97.8
[2023-11-07] MEDS: HYDROcodone/APAP 5-325MG 1 EACH TAB ONE (10:51)
--- NOTE | 2023-11-07 11:05 | XR ---
EXAMINATION TYPE: XR knee limited LT DATE OF EXAM: 11/07/2023 10:33 AM CLINICAL INDICATION:Male, 63 years old with history of post op; [facility] COMPARISON: None. TECHNIQUE: XR knee limited LT; examined in Frontal, lateral and oblique projections. FINDINGS: Status post francy-knee arthroplasty changes with hardware in appropriate alignment and int act. No evidence of fracture. Subcutaneous lucencies and lucencies within the joint consistent with s urgical changes. IMPRESSION: Status post total knee arthroplasty changes with hardware intact and appropriate alignment. No fractu res identified.
[2023-11-07 12:19] VITALS: BP 125/64; PULSE 58
== END 2023-11-07 13:09 | disposition home or self-care (01) ==
LOC: OR 05:38
PROVIDERS: ATTEND Orthopaedic Surgery
DX: M17.12 Unilateral primary osteoarthritis, left knee (principal); I10 Essential (primary) hypertension; Z79.899 Other long term (current) drug therapy; Z87.891 Personal history of nicotine dependence; E78.5 Hyperlipidemia, unspecified; J44.9 Chronic obstructive pulmonary disease, unspecified; Z79.82 Long term (current) use of aspirin; Z79.1 Long term (current) use of non-steroidal anti-inflammatories (NSAID)
CPT/HCPCS: 27446; 97530; 97161; 64447; 64999; 73560; C1776; C1713; J2250; J0330; J1100; J0690; J2405; J2001; J3010 ×2; J1170; J2795; J1885; J2704